=== PATIENT | male | born 1985 | race Caucasian/White ===

== ENCOUNTER 2021-10-13 10:40 | Inpatient (IN) | payer MEDICAID, OTHER ==
[~2021-10-13] VITALS: Ht 177.8 cm; Wt 62.8 kg
[2021-10-13 13:46] LABS: COVID AG,FIA SOURCE NASOPHARYNGEAL
[2021-10-13 14:06] LABS: BASOPHILS % (AUTO) 0.7 % (0.0-2.0); EOSINOPHILS % (AUTO) 0.7 % (1.0-6.0); HEMATOCRIT 39.1 % (41-53); LYMPHOCYTES # (AUTO) 1.7 K/uL (1.0-4.8); LYMPHOCYTES % (AUTO) 24.4 % (22.0-44.0); MEAN CORPUSCULAR HEMOGLOBIN 29.4 pg (26.0-34.0); MEAN CORPUSCULAR HGB CONC 33.3 G/dL (31.0-37.0); MEAN CORPUSCULAR VOLUME 88 fL (80-100); MONOCYTES # (AUTO) 0.8 K/uL (0.1-1.0); MONOCYTES % (AUTO) 10.7 % (2.0-9.0); NEUTROPHILS # (AUTO) 4.5 K/uL (1.8-7.7); NEUTROPHILS % (AUTO) 63.5 % (40.0-70.0); PLATELET COUNT (AUTO) 256 K/uL (150-450); RED BLOOD CELL COUNT(AUTO) 4.43 MIL/uL (4.50-5.90)
[2021-10-13 14:35] LABS: ANION GAP 10 mmol/L (8-16); CALCIUM, TOTAL 9.6 mg/dL (8.8-10.5); CARBON DIOXIDE 25 mmol/L (22-29); CHLORIDE 103 mmol/L (98-107); GLOMERULAR FILTR. RATE CALC > 60 mL/min (>60); GLUCOSE,RANDOM 100 mg/dL (70-110); SODIUM SERUM 138 mmol/L (136-145); UREA NITROGEN, BLOOD 17 mg/dL (7-18)
[2021-10-13 14:40] LABS: ALANINE AMINOTRANSFERASE 46 U/L (12-78); ALBUMIN 3.7 g/dL (3.4-5.0); ALKALINE PHOSPHATASE 65 U/L (46-116); ASPARTATE AMINOTRANSFERASE 69 U/L (15-37); BILIRUBIN,TOTAL 0.4 mg/dL (0.1-1.0); TOTAL PROTEIN, SERUM 7.4 g/dL (6.4-8.2)
[2021-10-13 15:45] LABS: AMPHET/METH SCREEN,URINE POSITIVE (NEGATIVE); BARBITURATE SCREEN, URINE NEGATIVE (NEGATIVE); BENZODIAZEPINES SCREEN,URINE NEGATIVE (NEGATIVE); CANNABINOID SCREEN,URINE POSITIVE (NEGATIVE); COCAINE SCREEN,URINE NEGATIVE (NEGATIVE); METHADONE SCREEN, URINE NEGATIVE (NEGATIVE); OPIATE SCREEN,URINE NEGATIVE (NEGATIVE); PHENCYCLIDINE SCREEN,URINE NEGATIVE (NEGATIVE)
[2021-10-13] MEDS ORDERED: LORazepam 1 MG TABLET PO ONE (16:00)
[2021-10-13] MEDS ORDERED: HALOPERIDOL 5 MG TABLET PO PRN (17:00)
[2021-10-14 07:25] LABS: CHOL/HDL RATIO 3.1 (4.2-7.3); CHOLESTEROL 205 mg/dL (131-200); HDL CHOLESTEROL 67 mg/dL (40-60); LDL CHOL (CALC.) 113 mg/dL (0-130); TRIGLYCERIDES 127 mg/dL (15-150)
[2021-10-14 11:16] LABS: GLUCOMETER DEV NAME(LOC) BV2S.; GLUCOSE,POINT OF CARE 92 MG/DL (70-110)
[2021-10-14] MEDS ORDERED: INFLUENZA VIRUS VACCINE QVS 2021-22 (6MO+)/PF 60 MCG/0.5 ML SYRINGE IM. ONE (12:00)
[2021-10-14] MEDS: LORazepam 2 MG TABLET PO PRN (13:10)
[2021-10-14] MEDS: NICOTINE 21 MG/24 HOUR PATCH TD SCH (13:11)
[2021-10-14] MEDS ORDERED: MAG HYDROX/AL HYDROX/SIMETH ES 30 ML SUSPENSION UDCUP PO PRN (14:30)
[2021-10-14] MEDS ORDERED: LOPERAMIDE HCL 2 MG CAPSULE PO PRN (14:30)
[2021-10-14] MEDS ORDERED: CloNIDine HCL 0.1 MG TABLET PO PRN (14:30)
[2021-10-14] MEDS ORDERED: ACETAMINOPHEN 325 MG TABLET PO PRN (14:30)
[2021-10-14] MEDS ORDERED: PETROLATUM,WHITE 28 GM JELLY TP PRN (14:30)
[2021-10-14] MEDS ORDERED: BENZOCAINE/MENTHOL LOZENGE PO PRN (14:30)
[2021-10-14] MEDS ORDERED: ALBUTEROL SULFATE HFA 90 MCG/PUFF 8 GM INHALER IH PRN (14:30)
[2021-10-14] MEDS: DOCUSATE SODIUM 100 MG CAPSULE PO SCH (14:30)
[2021-10-14 16:03] VITALS: BP 104/55
[2021-10-14] MEDS: BACITRACIN 28 GM OINTMENT TP SCH (16:32)
[2021-10-14 20:47] VITALS: BP 116/73
[2021-10-14] MEDS: ZOLPIDEM TARTRATE 10 MG TABLET PO PRN (20:49)
[2021-10-14] MEDS: IBUPROFEN 600 MG TABLET PO PRN (20:49)
[2021-10-15 00:26] VITALS: BP 120/75
[2021-10-15 08:08] VITALS: BP 106/62
[2021-10-15] MEDS: DOCUSATE SODIUM 100 MG CAPSULE PO SCH (08:19)
[2021-10-15] MEDS: OMEPRAZOLE 20 MG CAPSULE PO SCH (08:19)
[2021-10-15] MEDS: NICOTINE 21 MG/24 HOUR PATCH TD SCH (08:19)
[2021-10-15] MEDS: BACITRACIN 28 GM OINTMENT TP SCH ×2 (08:24→16:07)
[2021-10-15] MEDS: LORazepam 2 MG TABLET PO PRN (16:07)
[2021-10-15] MEDS: DIVALPROEX SODIUM 500 MG DR TABLET PO SCH (16:07)
[2021-10-15 16:16] VITALS: BP 130/69
[2021-10-15] MEDS: IBUPROFEN 600 MG TABLET PO PRN (17:14)
[2021-10-16 00:42] VITALS: BP 125/70
[2021-10-16 08:07] VITALS: BP 103/66
[2021-10-16] MEDS: IBUPROFEN 600 MG TABLET PO PRN (08:26)
[2021-10-16] MEDS: DOCUSATE SODIUM 100 MG CAPSULE PO SCH (08:27)
[2021-10-16] MEDS: DIVALPROEX SODIUM 500 MG DR TABLET PO SCH ×2 (08:27→16:23)
[2021-10-16] MEDS: OMEPRAZOLE 20 MG CAPSULE PO SCH (08:27)
[2021-10-16] MEDS: NICOTINE 21 MG/24 HOUR PATCH TD SCH (10:32)
[2021-10-16] MEDS: BACITRACIN 28 GM OINTMENT TP SCH ×2 (10:32→16:24)
[2021-10-16 16:15] VITALS: BP 116/71
[2021-10-16] MEDS: ZOLPIDEM TARTRATE 10 MG TABLET PO PRN (20:25)
[2021-10-16] MEDS: OLANZapine 5 MG TABLET PO SCH (20:25)
[2021-10-17 00:26] VITALS: BP 121/69
[2021-10-17 08:23] VITALS: BP 108/55
[2021-10-17] MEDS: DOCUSATE SODIUM 100 MG CAPSULE PO SCH (08:52)
[2021-10-17] MEDS: DIVALPROEX SODIUM 500 MG DR TABLET PO SCH ×2 (08:52→16:10)
[2021-10-17] MEDS: OMEPRAZOLE 20 MG CAPSULE PO SCH (08:52)
[2021-10-17] MEDS: MULTIVITAMINS WITH MINERALS, THERAPEUTIC TABLET PO SCH (08:52)
[2021-10-17] MEDS: NICOTINE 21 MG/24 HOUR PATCH TD SCH (08:55)
[2021-10-17] MEDS: BACITRACIN 28 GM OINTMENT TP SCH ×2 (08:56→16:10)
[2021-10-17 16:03] VITALS: BP 108/60
[2021-10-17] MEDS: LORazepam 2 MG TABLET PO PRN (16:41)
[2021-10-17] MEDS: OLANZapine 5 MG TABLET PO SCH (20:29)
[2021-10-17] MEDS: ZOLPIDEM TARTRATE 10 MG TABLET PO PRN (20:35)
[2021-10-18 00:10] VITALS: BP 110/62
[2021-10-18 08:06] VITALS: BP 106/57
[2021-10-18] MEDS: DOCUSATE SODIUM 100 MG CAPSULE PO SCH (08:11)
[2021-10-18] MEDS: OMEPRAZOLE 20 MG CAPSULE PO SCH (08:14)
[2021-10-18] MEDS: MULTIVITAMINS WITH MINERALS, THERAPEUTIC TABLET PO SCH (08:14)
[2021-10-18] MEDS: DIVALPROEX SODIUM 500 MG DR TABLET PO SCH ×2 (08:14→16:32)
[2021-10-18] MEDS: NICOTINE 21 MG/24 HOUR PATCH TD SCH (08:14)
[2021-10-18] MEDS: BACITRACIN 28 GM OINTMENT TP SCH ×2 (08:14→16:32)
[2021-10-18 16:04] VITALS: BP 117/71
[2021-10-18] MEDS: LORazepam 2 MG TABLET PO PRN (16:32)
[2021-10-18] MEDS: ZOLPIDEM TARTRATE 10 MG TABLET PO PRN (20:45)
[2021-10-18] MEDS: OLANZapine 5 MG TABLET PO SCH (20:45)
[2021-10-19 00:10] VITALS: BP 116/70
[2021-10-19 08:02] VITALS: BP 107/62
[2021-10-19] MEDS: NICOTINE 21 MG/24 HOUR PATCH TD SCH (08:57)
[2021-10-19] MEDS: OMEPRAZOLE 20 MG CAPSULE PO SCH (08:58)
[2021-10-19] MEDS: MULTIVITAMINS WITH MINERALS, THERAPEUTIC TABLET PO SCH (08:58)
[2021-10-19] MEDS: BACITRACIN 28 GM OINTMENT TP SCH (08:58)
[2021-10-19] MEDS: DIVALPROEX SODIUM 500 MG DR TABLET PO SCH (08:58)
[2021-10-19] MEDS: DOCUSATE SODIUM 100 MG CAPSULE PO SCH (09:04)
[2021-10-19] MEDS ORDERED: DIVA-112 PO (12:48)
[2021-10-19] MEDS ORDERED: OLAN5TAB52 PO (12:48)
== END 2021-10-19 14:05 | disposition home or self-care (01) | DRG 750 ==
LOC: EMS 10:40 → B2S 10-14 09:24
PROVIDERS: ADMIT Psychiatry & Neurology Psychiatry; ATTEND Psychiatry & Neurology Psychiatry
DX: F25.9 Schizoaffective disorder, unspecified (principal); F32.2 Major depressive disorder, single episode, severe without psychotic features; R45.851 Suicidal ideations; F12.90 Cannabis use, unspecified, uncomplicated; F15.10 Other stimulant abuse, uncomplicated; F41.9 Anxiety disorder, unspecified; G47.00 Insomnia, unspecified; K59.00 Constipation, unspecified; F17.210 Nicotine dependence, cigarettes, uncomplicated; Z20.822 Contact with and (suspected) exposure to COVID-19; Z79.899 Other long term (current) drug therapy
CPT/HCPCS: 71101; 80053; 80061; 82962; 85025; 99285; G0480